=== PATIENT | female | born 1950 | race Caucasian/White ===

== ENCOUNTER 2019-05-17 14:03 | Emergency (ER) | payer MEDICARE, BC ==
[~2019-05-17] VITALS: Ht 165.1 cm; Wt 62.7 kg
--- NOTE | 2019-05-17 14:21 | NUR ---
Awaiting pt from CXR.
[2019-05-17 14:37] LABS: BASOPHILS % (AUTO) 0.5 % (0-1); EOSINOPHILS # (AUTO) 0.1 X10'3 (0-0.9); EOSINOPHILS % (AUTO) 1.9 % (0-6); HEMATOCRIT 38.8 % (35.0-45.0); HEMOGLOBIN 13.1 g/dl (12.0-16.0); LYMPHOCYTES # (AUTO) 2.5 X10'3 (1.1-4.8); LYMPHOCYTES % (AUTO) 38.1 % (21-51); MEAN CORPUSCULAR HEMOGLOBIN 32.7 PG (27.0-31.0); MEAN CORPUSCULAR HGB CONC 33.9 g/dL (33.0-36.5); MEAN CORPUSCULAR VOLUME 96.6 FL (78-98); MEAN PLATELET VOLUME 8.7 FL (7.4-10.4); MONOCYTES # (AUTO) 0.7 X10'3 (0-0.9); MONOCYTES % (AUTO) 11.4 % (2-12); NEUTROPHILS # (AUTO) 3.1 X10'3 (1.8-7.7); NEUTROPHILS % (AUTO) 48.1 % (42-75); PLATELET COUNT 267 X10'3 (140-440); RED BLOOD COUNT 4.02 X10'6 (4.20-5.60); RED CELL DISTRIBUTION WIDTH 12.4 % (11.5-14.5); WHITE BLOOD COUNT 6.5 X10'3 (4.5-11.0)
[2019-05-17 14:43] LABS: PARTIAL THROMBOPLASTIN TIME 31 SECONDS (22-32)
[2019-05-17 14:44] LABS: ALANINE AMINOTRANSFERASE 24 U/L (12-78); ALBUMIN/GLOBULIN RATIO 1.3 (1.1-1.5); ALKALINE PHOSPHATASE 61 IU/L (46-116); ANION GAP 9 (8-16); ASPARTATE AMINO TRANSFERASE 18 U/L (10-37); BILIRUBIN,TOTAL 0.4 MG/DL (0.1-1.0); BLOOD UREA NITROGEN 18 MG/DL (7-18); BUN/CREATININE RATIO 16.1 (6.6-38.0); CALCIUM 9.2 MG/DL (8.5-10.1); CHLORIDE 99 MMOL/L (99-107); CREATININE 1.12 MG/DL (0.40-0.90); GLUCOSE 107 MG/DL (70-104); POTASSIUM 3.7 MMOL/L (3.5-5.1); SODIUM 136 MMOL/L (135-145); TOTAL CARBON DIOXIDE 28.3 MMOL/L (24-32); TOTAL PROTEIN 7.2 G/DL (6.4-8.2); eGFR 48 ML/MIN
[2019-05-17 15:04] VITALS: BP 148/55
== END 2019-05-17 15:08 | disposition home or self-care (01) ==
LOC: ER 14:04
DX: R00.2 Palpitations (principal); I49.3 Ventricular premature depolarization; Z88.2 Allergy status to sulfonamides; Z88.1 Allergy status to other antibiotic agents; Z88.6 Allergy status to analgesic agent; Z90.49 Acquired absence of other specified parts of digestive tract; Z98.890 Other specified postprocedural states
CPT/HCPCS: 36415; 71045; 80053; 84484; 85025; 85610; 85730; 93005; 99284

== ENCOUNTER 2019-11-14 13:41 | Observation (INO) | payer MEDICARE, BC ==
[~2019-11-14] VITALS: Ht 165.1 cm; Wt 63.9 kg
[2019-11-14 14:35] LABS: BASOPHILS % (AUTO) 0.5 % (0-1); EOSINOPHILS # (AUTO) 0.2 X10'3 (0-0.9); EOSINOPHILS % (AUTO) 2.9 % (0-6); HEMOGLOBIN 13.1 g/dl (12.0-16.0); LYMPHOCYTES # (AUTO) 2.7 X10'3 (1.1-4.8); LYMPHOCYTES % (AUTO) 38.4 % (21-51); MEAN CORPUSCULAR HEMOGLOBIN 33.1 PG (27.0-31.0); MEAN CORPUSCULAR HGB CONC 34.5 g/dL (33.0-36.5); MEAN CORPUSCULAR VOLUME 95.8 FL (78-98); MEAN PLATELET VOLUME 8.3 FL (7.4-10.4); MONOCYTES # (AUTO) 0.6 X10'3 (0-0.9); MONOCYTES % (AUTO) 7.7 % (2-12); NEUTROPHILS # (AUTO) 3.6 X10'3 (1.8-7.7); NEUTROPHILS % (AUTO) 50.5 % (42-75); PLATELET COUNT 260 X10'3 (140-440); RED BLOOD COUNT 3.97 X10'6 (4.20-5.60); RED CELL DISTRIBUTION WIDTH 12.6 % (11.5-14.5); WHITE BLOOD COUNT 7.2 X10'3 (4.5-11.0)
[2019-11-14 14:48] LABS: ALANINE AMINOTRANSFERASE 26 U/L (12-78); ALBUMIN 4.1 G/DL (3.4-5.0); ALBUMIN/GLOBULIN RATIO 1.2 (1.1-1.5); ALKALINE PHOSPHATASE 61 IU/L (46-116); ANION GAP 6 (8-16); ASPARTATE AMINO TRANSFERASE 18 U/L (10-37); BILIRUBIN,TOTAL 0.4 MG/DL (0.1-1.0); BLOOD UREA NITROGEN 16 MG/DL (7-18); BUN/CREATININE RATIO 13.8 (6.6-38.0); CALCIUM 8.6 MG/DL (8.5-10.1); CHLORIDE 101 MMOL/L (99-107); CREATININE 1.16 MG/DL (0.40-0.90); GLUCOSE 117 MG/DL (70-104); POTASSIUM 3.7 MMOL/L (3.5-5.1); SODIUM 138 MMOL/L (135-145); TOTAL CARBON DIOXIDE 31.2 MMOL/L (24-32); TOTAL PROTEIN 7.4 G/DL (6.4-8.2); eGFR 46 ML/MIN
[2019-11-14] MEDS ORDERED: aspirin 81mg tab.chew PO ONE (15:20)
[2019-11-14] MEDS: nitroGLYCERIN 0.4mg SUBLingual tab SL PRN ×3 (15:43→21:19)
[2019-11-14] MEDS ORDERED: morphine 2 MG/ML inj. syringe IV PRN (15:45)
[2019-11-14] MEDS ORDERED: mag hydrox/Alum hydrox/simeth 30ml oral suspension PO PRN (15:45)
[2019-11-14] MEDS ORDERED: magnesium hydroxide 30ml (MOM) UD suspension PO PRN (15:45)
[2019-11-14] MEDS ORDERED: acetaminophen 325mg tablet PO PRN (15:45)
[2019-11-14] MEDS ORDERED: ondansetron/PF 4mg/2ml inj IV PRN (15:45)
[2019-11-14] MEDS ORDERED: MELO-102 PO (16:09)
[2019-11-14] MEDS ORDERED: HYDR12.55 PO (16:09)
[2019-11-14] MEDS ORDERED: CIPR-259 PO (16:09)
[2019-11-14] MEDS ORDERED: MULT1TAB74 PO (16:09)
[2019-11-14] MEDS ORDERED: CARB15DR EACHEYE (16:09)
[2019-11-14] MEDS ORDERED: ASPI-1265 PO (16:09)
[2019-11-14] MEDS ORDERED: LOSA25TA96 PO (16:09)
[2019-11-14] MEDS ORDERED: ALBU6.7H9 INH (16:09)
[2019-11-14] MEDS ORDERED: IBUP-1984 PO (16:09)
[2019-11-14] MEDS ORDERED: HYDR200T84 PO (16:09)
[2019-11-14] MEDS ORDERED: CHOL100025 PO (16:09)
[2019-11-14] MEDS ORDERED: FLUC200T PO (16:09)
[2019-11-14] MEDS ORDERED: PRED5TAB PO ×2 (16:09→22:46)
[2019-11-14] MEDS ORDERED: SODI30SP3 BOTHNARES (16:09)
[2019-11-14] MEDS ORDERED: PILO5TAB PO (16:09)
[2019-11-14] MEDS ORDERED: FAMO20TA8 PO (16:09)
[2019-11-14] MEDS ORDERED: PREVCR VG (16:09)
[2019-11-14] MEDS ORDERED: SIMV10TA2 PO (16:09)
[2019-11-14] MEDS ORDERED: HYDR-4383 PO (16:09)
[2019-11-14] MEDS ORDERED: FISH12002 PO (16:09)
--- NOTE | 2019-11-14 17:42 | NUR ---
SHELBI PAGED: PAGER ID: [phone] MESSAGE: 309: C/O CP, EKG DONE, WHERE R U TO SHOW EKG. NURSE PAT [id number]
[2019-11-14] MEDS: morphine 2 MG/ML inj. syringe IV PRN ×2 (17:54→21:36)
[2019-11-14 18:00] VITALS: BP 159/46
--- NOTE | 2019-11-14 18:00 | NUR ---
Patient in room MED 309. I have received report from Mirna MARCUS and had the opportunity to ask questions and assume patient care.
--- NOTE | 2019-11-14 18:00 | NUR ---
Patient in room MED 309. I have received report from AAMIR MARCUS and had the opportunity to ask questions and assume patient care.
--- NOTE | 2019-11-14 18:00 | NUR ---
PATIENT C/O OF LT SHOULDER, AND ARM PAIN WITH TINGLING IN LEFT HAND AND FINGERS. RATED PAIN 7/[address] MARIO; ORDERS RECEIVED AND NOTED . PATIENT GIVEN 2MG OF MORPHINE SULFATE IV.PATIENT'S EARS BECAME WARM AND REDDENED S/P MORPHINE SULFATE; HOWEVER, NO OTHER SYMPTOMS NOTED. RESP REG AND UNLABORED. ECHO COMPLETED. REPORTED OFF TO RAILROAD DETECTIVE.CALL LIGHT IN REACH. Addendum: 11/14/19 at 2054 by Amalia More RN Amended: Links added.
--- NOTE | 2019-11-14 18:45 | NUR ---
promotional table spacer PAGER ID: [phone] MESSAGE: [id number] Prior, Nicole BP 1769/62, HR 76-takes losartan at night, please complete med rec to give BP/HR meds, thank you. Kelsi CHAIDEZ [id number]
[2019-11-14] MEDS ORDERED: hydrALAZINE 20mg/ml inj. IV PRN (19:00)
[2019-11-14] MEDS ORDERED: nitroGLYCERIN 0.4mg/hour patch TD ONE (19:00)
[2019-11-14] MEDS ORDERED: HYDROcodone/acetaminophen 5mg/325mg tablet PO PRN (19:00)
[2019-11-14] MEDS ORDERED: CARBOXYMETHYLCELLULOSE SODIUM EACHEYE SCH (19:00)
[2019-11-14] MEDS ORDERED: nitroGLYCERIN 0.4mg SUBLingual tab SL PRN (19:05)
[2019-11-14] MEDS ORDERED: regadenoson 0.4mg/5ml syringe IV PRN (19:05)
[2019-11-14] MEDS ORDERED: metoprolol tartrate 1mg/ml inj IV PRN (19:05)
[2019-11-14] MEDS ORDERED: aminophylline 250mg/10ml inj. IV PRN (19:05)
--- NOTE | 2019-11-14 19:15 | NUR ---
PATIENT PLACED ON TELE 25 TO USE THE BATHROOM, FINANCIAL PROFESSIONAL NOTIFIED.
[2019-11-14] MEDS ORDERED: albuterol 2.5 MG/3 ML nebule NEB PRN (19:20)
[2019-11-14] MEDS: carVEDilol 3.125mg tablet PO SCH (20:10)
[2019-11-14] MEDS: heparin, porcine 5000 units/ml vial SQ SCH (20:14)
[2019-11-14] MEDS: salt irrigation nasal spray 45 ML SPRAY NS SCH ×3 (20:15→23:10)
[2019-11-14] MEDS ORDERED: losartan 25mg tablet PO SCH (21:00)
[2019-11-14] MEDS: PILOCARPINE HCL 5 MG PO SCH (21:16)
[2019-11-14 22:00] VITALS: BP 138/69
[2019-11-14] MEDS ORDERED: HYDROcodone/acetaminophen 10/325mg tab PO PRN (22:55)
[2019-11-15] VITALS (11 sets, daily range): BP systolic 101–162; BP diastolic 43–70
[2019-11-15] MEDS: salt irrigation nasal spray 45 ML SPRAY NS SCH ×7 (01:50→13:00)
[2019-11-15] MEDS: normal saline 1000ml 1,000 ML IV SCH ×3 (01:51→11:47)
[2019-11-15 02:50] LABS: ALBUMIN 3.2 G/DL (3.4-5.0); ANION GAP 5 (8-16); BLOOD UREA NITROGEN 15 MG/DL (7-18); CALCIUM 8.1 MG/DL (8.5-10.1); CHLORIDE 104 MMOL/L (99-107); GLUCOSE 115 MG/DL (70-104); POTASSIUM 4.2 MMOL/L (3.5-5.1); SODIUM 137 MMOL/L (135-145); TOTAL CARBON DIOXIDE 28.4 MMOL/L (24-32); eGFR 55 ML/MIN
[2019-11-15] MEDS ORDERED: HYDROcodone/acetaminophen 10/325mg tab PO PRN (03:00)
[2019-11-15 05:29] LABS: BASOPHILS % (AUTO) 0.7 % (0-1); EOSINOPHILS # (AUTO) 0.2 X10'3 (0-0.9); EOSINOPHILS % (AUTO) 3.7 % (0-6); HEMATOCRIT 31.5 % (35.0-45.0); HEMOGLOBIN 10.9 g/dl (12.0-16.0); LYMPHOCYTES # (AUTO) 1.6 X10'3 (1.1-4.8); LYMPHOCYTES % (AUTO) 29.2 % (21-51); MEAN CORPUSCULAR HEMOGLOBIN 33.2 PG (27.0-31.0); MEAN CORPUSCULAR HGB CONC 34.7 g/dL (33.0-36.5); MEAN CORPUSCULAR VOLUME 95.6 FL (78-98); MEAN PLATELET VOLUME 8.5 FL (7.4-10.4); MONOCYTES # (AUTO) 0.5 X10'3 (0-0.9); MONOCYTES % (AUTO) 8.7 % (2-12); NEUTROPHILS # (AUTO) 3.2 X10'3 (1.8-7.7); NEUTROPHILS % (AUTO) 57.7 % (42-75); PLATELET COUNT 209 X10'3 (140-440); RED BLOOD COUNT 3.29 X10'6 (4.20-5.60); RED CELL DISTRIBUTION WIDTH 12.5 % (11.5-14.5); WHITE BLOOD COUNT 5.6 X10'3 (4.5-11.0)
--- NOTE | 2019-11-15 06:00 | NUR ---
Problems reprioritized. Patient report given, questions answered & plan of care reviewed with EVER MARCUS.
--- NOTE | 2019-11-15 06:10 | NUR ---
Patient in room MED 309. I have received report from AMRIT Dolan and had the opportunity to ask questions and assume patient care.
[2019-11-15] MEDS: heparin, porcine 5000 units/ml vial SQ SCH (07:39)
[2019-11-15] MEDS: carVEDilol 3.125mg tablet PO SCH (07:46)
[2019-11-15] MEDS ORDERED: famotidine 10mg tablet PO SCH (08:00)
[2019-11-15] MEDS ORDERED: aspirin 81mg tab.chew PO SCH (08:00)
[2019-11-15] MEDS ORDERED: OMEGA-3/DHA/EPA/FISH OIL 1 EACH CAPSULE.DR PO SCH (08:00)
[2019-11-15] MEDS ORDERED: multivitamins, therapeutics tablet PO SCH (08:00)
[2019-11-15] MEDS ORDERED: fluconazole 100mg tablet PO SCH (08:00)
[2019-11-15] MEDS ORDERED: MELOXICAM 15 MG PO SCH (08:00)
[2019-11-15] MEDS: PILOCARPINE HCL 5 MG PO SCH ×2 (08:00→13:00)
[2019-11-15] MEDS ORDERED: atorvastatin 10mg tablet PO SCH (08:00)
[2019-11-15] MEDS ORDERED: hydroxychloroquine 200mg tablet PO SCH (08:00)
[2019-11-15] MEDS ORDERED: HYDROchlorothiazide 12.5mg capsule PO SCH (08:00)
[2019-11-15] MEDS ORDERED: vitamin D (cholecalciferol) 1,000 unit tablet PO SCH (08:00)
[2019-11-15] MEDS ORDERED: prednisone 10mg tablet PO SCH (13:00)
[2019-11-15] MEDS ORDERED: salt irrigation nasal spray 45 ML SPRAY NS PRN (13:40)
--- NOTE | 2019-11-15 13:52 | NUR ---
Paged Dr. Little regarding Sariah results & plan of care: "PAGER ID: [phone] MESSAGE: RM 309 FYI Sariah scan resulted, patient requesting to speak with you regarding plan. Still reporting chest/neck pain 03/05. Thanks Jennifer CHAIDEZ [id number]"
[2019-11-15] MEDS ORDERED: CYCL-1 PO (14:43)
--- NOTE | 2019-11-15 15:25 | NUR ---
Patient stable for discharge per MD orders. E-script transmitted to [facility] in [place], called to verify. All discharge instructions & medication regimen reviewed with patient. Education provided, patient verbalized understanding. All questions answered. potline monitor removed. PIV discontinued, cannula intact, clean, dry dressing in place. All personal belongings collected and sent with patient. RN wheeled patient to private vehicle to be transported home by spouse at 1525.
[2019-11-16] MEDS ORDERED: prednisone 10mg tablet PO SCH (08:00)
--- NOTE | 2019-11-16 15:47 | NUR ---
Case Management DC follow up: spoke w/pt via telephone: pt reports feeling better, but still has pain/muscle took new med for spasms which gave some relief. has already been to see PCP Crystal Weller who is setting pt up to have MRI of the spine r/t c/o numb fingers. Pt also has follow up appt w/Dr Lara. No ase r/t polypharmacy. Denies cp r/t cardiac, denies SOB, resp distress, NV, dizziness at this time. Verbalizes understanding of medications and why prescribed. All needs met, questions answered at DC, no further questions at this time.
== END 2019-11-15 15:25 | disposition home or self-care (01) ==
LOC: ER 13:41 → ED HOLD 15:42 → MED 3N 16:29
PROVIDERS: ADMIT Family Medicine; ATTEND Family Medicine
DX: R07.89 Other chest pain (principal); I10 Essential (primary) hypertension; E78.5 Hyperlipidemia, unspecified; M35.00 Sjogren syndrome, unspecified; E78.00 Pure hypercholesterolemia, unspecified; Z90.710 Acquired absence of both cervix and uterus; Z90.722 Acquired absence of ovaries, bilateral; Z90.49 Acquired absence of other specified parts of digestive tract; Z90.89 Acquired absence of other organs; Z79.82 Long term (current) use of aspirin; Z79.899 Other long term (current) drug therapy; Z88.8 Allergy status to other drugs, medicaments and biological substances; Z88.0 Allergy status to penicillin; Z88.2 Allergy status to sulfonamides; Z91.048 Other nonmedicinal substance allergy status
CPT/HCPCS: 36415; 71045; 78452; 80048; 80053; 84484; 85025; 87081; 93005; 93017; 93306; 96372; 96374; 96376; 99284; A9500; G0378; J0280; J1644; J2270; J2785; J7030; J7512

== ENCOUNTER 2021-03-17 10:30 | Emergency (ER) | payer MEDICARE, BC ==
[~2021-03-17] VITALS: Ht 160 cm; Wt 131.0 kg
[~2021-03-17 10:30] MED LIST: ALBU6.7H9 INH; ASPI-1265 PO; CARB15DR EACHEYE; CHOL100025 PO; FAMO20TA8 PO; FISH12002 PO; FLUC200T PO; HYDR-4383 PO; HYDR12.55 PO; HYDR200T84 PO; IBUP-1984 PO; LOSA25TA96 PO; MELO-102 PO; MULT-620 PO; PILO5TAB PO; PRED5TAB PO; PREVCR VG; SIMV10TA2 PO; SODI30SP3 BOTHNARES
[2021-03-17 10:39] VITALS: BP 134/81
== END 2021-03-17 14:10 | disposition home or self-care (01) ==
LOC: ER 10:30
DX: S82.62XA Displaced fracture of lateral malleolus of left fibula, initial encounter for closed fracture (principal); E78.00 Pure hypercholesterolemia, unspecified; I10 Essential (primary) hypertension; Z87.81 Personal history of (healed) traumatic fracture; Z90.49 Acquired absence of other specified parts of digestive tract; Z98.890 Other specified postprocedural states; Z88.1 Allergy status to other antibiotic agents; Z88.2 Allergy status to sulfonamides; Z88.8 Allergy status to other drugs, medicaments and biological substances; Z79.82 Long term (current) use of aspirin; Z79.899 Other long term (current) drug therapy; W19.XXXA Unspecified fall, initial encounter; Y93.89 Activity, other specified; Y92.89 Other specified places as the place of occurrence of the external cause; Y99.8 Other external cause status
CPT/HCPCS: 73610; 99283

== ENCOUNTER 2025-07-30 08:34 | Emergency (ER) | payer MEDICARE, BC ==
[~2025-07-30] VITALS: Ht 233.7 cm; Wt 68.6 kg
[~2025-07-30 08:34] MED LIST changes: +ALBU6.7H14 INH; -ALBU6.7H9 INH; +HYDR200T73 PO; -HYDR200T84 PO; +LOSA-415 PO; -LOSA25TA96 PO; +SIMV-341 PO; -SIMV10TA2 PO
[2025-07-30] MEDS: buprenorphine/naloxone 2-0.5mg sublingual tablet SL ONE (10:18)
[2025-07-30] MEDS: ondansetron 4mg rapidly disintigrating tab PO ONE (10:19)
--- NOTE | 2025-07-30 11:20 | Physician Documentation ---
History of Present Illness ~ General Chief Complaint: Multiple Medical Complaints Stated Complaint: MEDICATION REACTION Time Seen by MD: 09:45 OK to notify your PCP?: Yes Primary Medical Doctor: Crystal Source: patient Mode of Arrival: POV Exam Limitations: no limitations History of Present Illness Initial Comments 74-year-old female who is here due to feeling jittery and pain in her body which started after she discontinued Troutville 2-1/2 days ago. She has been on Troutville for well over 10 years for her chronic pain however after discussion with her primary care provider decided to transition to Suboxone. Last dosage of Trout[place] 10/325mg was Friday at 8pm which is about 2.5days ago. She started Suboxone morning and took 4mg. Yesterday she took 3mg of Suboxone and states she was feeling so poorly she contacted the provider with [facility] and they told her to take 3mg which she did. She reports today she feels worse than yesterday and she is concerned she is having a reaction to Suboxone. Symptoms are nausea, episodes of vomiting, "jitterness" in extremities, sweating, body pain. Medication Reconciliation Allergies: Coded Allergies: Sulfa (Sulfonamide Antibiotics) (Verified Allergy, Unknown, 07/30/25) adhesive tape (Verified Allergy, Unknown, 07/30/25) amoxicillin (Verified Allergy, Unknown, 07/30/25) dicyclomine (Verified Allergy, Unknown, 07/30/25) meperidine (Verified Allergy, Unknown, 07/30/25) prochlorperazine (Verified Allergy, Unknown, 07/30/25) Scheduled Aspirin (Aspirin), 1 TAB.CHEW PO DAILY, (Reported) Carboxymethylcellulose Sodium (Refresh Tears), 1 DROP EACHEYE PRN, (Reported) Cholecalciferol (Vitamin D), 5 TAB PO DAILY, (Reported) Estrogens,Conjugated (PREMARIN Vaginal Cream), 1 APPLIC VG TWICE PER WEEK, (Reported) Famotidine (Famotidine), 2 TAB PO DAILY, (Reported) Fish Oil/Borage/Flax/Om3,6,9#1 ([place] 3-6-9 1,200 mg Softgel), 1 CAP PO DAILY, (Reported) Fluconazole (Diflucan), 0.5 TAB PO DAILY, (Reported) Hydrochlorothiazide (Hydrochlorothiazide), 1 TAB PO DAILY, (Reported) Hydroxychloroquine Sulfate* (Plaquenil*), 200 MG PO DAILY, (Reported) Losartan Potassium* (Cozaar*), 4 TAB PO HS, (Reported) Meloxicam (Meloxicam), 1 TAB PO DAILY, (Reported) Multivitamins (Multivitamins), 1 TAB PO DAILY, (Reported) Pilocarpine Hcl (Pilocarpine Hcl), 5 MG PO TID, (Reported) Prednisone* (Prednisone*), 2 TAB PO Q48H, (Reported) Simvastatin (Zocor), 1 TAB PO HS, (Reported) Sodium Chloride (Saline Nasal [place]), 1-2 SPRAYS BOTHNARES Q2H, (Reported) Scheduled PRN Albuterol Sulfate (Proventil Hfa), 2 PUFFS INH Q6H PRN for SOB or wheezing, (Reported) Hydrocodone/Acetaminophen ([place] 5-325 Tablet), 1 TAB PO Q6H PRN for pain, (Reported) Ibuprofen* (Motrin*), 400 MG PO Q6H PRN for pain, (Reported) Past Medical History Past Medical History: High Cholesterol, Hypertension, Extremity Fracture Past Surgical History: cholecystectomy, orthopedic surgeries, tonsillectomy Alcohol Use: Occasionally Lives with: Spouse Lives In: Home Review of Systems All Other Systems at this time: Reviewed and Negative Physical Exam Physical Exam Vital Signs: Temperature: 96.3, Source: Temporal, Heart Rate: 80, Respiratory Rate: 16, BP: 161/53, Pulse Oximetry: 97, Weight: 68.640 Oxygen Flow Rate: 0 Physical Exam GENERAL: Alert, DIFFICULTY SITTING STILL, MOVING EXTREMITIES AND SHIFTING AROUND WHILE SITTING ON GURNEY. HEENT: NCAT, EOMI, PERRL, normal oropharynx, moist oral mucosa. NECK: Supple, trachea midline. CARDIAC: Regular rate and rhythm, no murmurs, rubs, or gallops. PV: Equal distal pulses. No lower extremity edema, cap refill less than 2 seconds. RESPIRATORY: Equal breath sounds, clear to auscultation bilaterally, no respiratory distress. GASTROINTESTINAL: Non distended, soft, nontender, No guarding or rebound. MUSCULOSKELETAL: Normal range of motion, nontender, no swelling. Normal gait. NEUROLOGICAL: Awake, alert, and oriented x 3. SKIN: Warm/dry, no pallor, no rash. SLIGHTLY DIAPHORETIC. PSYCH: Alert and appropriate. APPEARS SLIGHTLY IRRITABLE. Progress Results/Orders Results/Orders Completed Orders - BABAK GABRER Buprenorphine/Naloxone Tablet (Buprenorp (07/30/25 09:55) Ondansetron Disint. Tablet (Zofran Odt T (07/30/25 10:10) Medications Received in ER Medications (Trade) Dose Ordered Sig/Arielle Route PRN Reason Start Time Stop Time Status Last Admin Dose Admin (buprenorphn-naloxn 2-0.5mg SL tablet) 2 tab STAT ONCE SL 07/30/25 09:55 07/30/25 10:00 DC 07/30/25 10:18 2 TAB (Zofran ODT tablet) 4 mg ONCE ONCE PO 07/30/25 10:10 07/30/25 10:11 DC 07/30/25 10:19 4 MG Vital Signs 07/30/25 07/30/25 08:39 11:28 Temp 96.3 96.3 Pulse 80 88 Resp 16 18 B/P (MAP) 161/53 135/66 Pulse Ox 97 95 O2 Flow Rate 0 Medical Decision Making Differential Diagnosis PATIENT'S COWS SCORE WAS 11, CONSISTENT WITH MILD OPIATE WITHDRAWAL WHICH IS CONSISTENT WITH HER STORY SHE LAST TOOK NORCO 2.5DAYS AGO. 30MINUTES AFTER ADMINISTERING THE SUBOXONE SHE REPORTED FEELING SIGNIFICANTLY BETTER. SHE WAS SITTING ON THE GURNEY AND APPEARED MORE CALM, LESS FIGIDITY, NO DIAPHORESIS. DDX: REACTION TO SUBOXONE, OPIATE WITHDRAWAL, CARDIOVASCULAR PROBLEM Departure Time of Disposition: 11:20 Disposition: 01 HOME / SELF CARE / HOMELESS Impression: Primary Impression: Opiate withdrawal Condition: Stable Discharge Instructions: General Discharge Instructions Additional Instructions: CONTINUE SUBOXONE AND F/U WITH [facility] SYMPTOMS ARE CONSISTENT WITH OPIATE WITHDRAWAL Referrals: NO PRIMARY CARE PROVIDER (PCP) Education Educated: Patient Educated regarding: diagnosis, treatment, need for follow up Signature Scribe Signature: X Attestation: BABAK SOOD Jul 30, 2025 11:20
[2025-07-30 11:28] VITALS: BP 135/66; PULSE 88; RESP 18; TEMP 96.3; O2SAT 95
[2025-07-31] MEDS ORDERED: BUPR1TAB44 (18:57)
[2025-07-31] MEDS ORDERED: GABA-530 (18:57)
[2025-07-31] MEDS ORDERED: ESCI20TA39 PO (18:58)
[2025-07-31] MEDS ORDERED: PANT40TA54 PO (18:58)
[2025-07-31] MEDS ORDERED: KEN0.1O TOP (18:58)
== END 2025-07-30 11:30 | disposition home or self-care (01) ==
LOC: ER 08:34
DX: F11.23 Opioid dependence with withdrawal (principal); E78.00 Pure hypercholesterolemia, unspecified; G89.29 Other chronic pain; I10 Essential (primary) hypertension; Z88.2 Allergy status to sulfonamides; Z88.8 Allergy status to other drugs, medicaments and biological substances; Z88.1 Allergy status to other antibiotic agents; Z90.49 Acquired absence of other specified parts of digestive tract; Z90.89 Acquired absence of other organs; Z79.899 Other long term (current) drug therapy; Z79.82 Long term (current) use of aspirin; Z72.89 Other problems related to lifestyle
CPT/HCPCS: 99283